=== PATIENT | female | born 1935 | race Caucasian/White ===

== ENCOUNTER 2017-07-18 10:44 | Inpatient (IN) | payer MEDICARE, MEDICAID ==
[~2017-07-18] VITALS: Ht 162.6 cm; Wt 108.9 kg
[~2017-07-18 10:44] MED LIST: ANTIVERT25 MG PO; BACTRIM 400-801 TAB PO; BAYER CHEWABLE81 MG PO; CELEXA20 MG PO; CENTRUM COMPLE1 EACH PO; DIPHENHIST12.5 MG/5 PO; DYAZIDE 37.5/251 CAP PO; GABAPENTIN100 MG PO; ICAPS AREDS1 TAB.SA PO; K-TAB10 MEQ PO; LASIX20 MG PO; MELATONIN 3 MG1 TAB PO; MIRALAX17 GM PO; MOBIC7.5 MG PO; NYSTATIN ORAL SU5 ML PO; OCUVITE PRESERV1 TAB PO; PLAVIX75 MG PO; POTASSIUM PO; POTASSIUM99 M1 PO; PREDNISONE; PRILOSEC20 MG PO; TYLENOL ARTHRITIS PO
[2017-07-18 11:22] LABS: APPEARANCE TURBID (CLEAR); BILIRUBIN NEGATIVE (NEGATIVE); COLOR YELLOW (YELLOW); GLUCOSE NEGATIVE (NEGATIVE); KETONE NEGATIVE (NEGATIVE); NITRITE NEGATIVE (NEGATIVE); PH 7.5 (5.0-6.0); PROTEIN NEGATIVE (NEGATIVE); SPECIFIC GRAVITY 1.005 (1.005-1.020); UROBILINOGEN NORMAL (NORMAL)
[2017-07-18 11:30] LABS: AMORPHOUS SEDIMENT >1+ /lpf (NONE SEEN); BACTERIA MANY /hpf (NONE SEEN); CALCIUM OXALATE CRYSTALS 0-5 /hpf (NONE SEEN); EPITHELIAL CELLS 0-5 /hpf (0-5); GRANULAR CAST OCC /lpf (NONE SEEN); HYALINE CAST OCC /lpf (NONE SEEN)
[2017-07-18 11:40] LABS: BASOPHILS 0.3 % (0-2); EOSINOPHILS 2.4 % (0-7); HEMATOCRIT 33.7 % (36.0-48.0); HEMOGLOBIN 11.2 g/dL (12-16); IMMATURE GRANULOCYTES 1.1 % (0-5); LYMPHOCYTES 18.1 % (15-50); MCH 30.5 pg (26.0-34.0); MCHC 33.2 g/dL (31.0-37.0); MCV 91.8 fL (80.0-100.0); MEAN PLATELET VOLUME 9.1 fL (7.4-10.4); MONOCYTES 21.2 % (2-11); NEUTROPHILS 56.9 % (40-80); RBC 3.67 10x6/uL (4.00-5.40); RDW 13.3 % (11.5-14.5); WBC 6.1 10x3/uL (4.8-10.8)
[2017-07-18 11:53] LABS: PLATELET COUNT 259 10x3/uL (130-400)
[2017-07-18 11:58] LABS: ALBUMIN 2.8 g/dL (3.4-5.0); ALKALINE PHOSPHATASE 83 U/L (46-116); ALT (SGPT) 22 U/L (10-68); BILIRUBIN - TOTAL 0.41 mg/dL (0.2-1.3); CALC OSMOLALITY 305 mosm/kg (275-300); CALCIUM 9.5 mg/dL (8.5-10.1); CARBON DIOXIDE 31.2 mmol/L (21.0-32.0); CHLORIDE - SERUM 98 mmol/L (98-107); CREATININE - SERUM 2.3 mg/dL (0.6-1.3); GLUCOSE 99 mg/dL (74-106); POTASSIUM - SERUM 5.3 mmol/L (3.5-5.1); PROTEIN - SERUM 7.8 g/dL (6.4-8.2); SODIUM 138 mmol/L (136-145); UREA NITROGEN 96 mg/dL (7-18); eGFR NON AFRICAN AMERICAN 21 mL/min (90-120)
[2017-07-18 12:07] LABS: CREATINE KINASE 34 UL (21-215); MAGNESIUM - SERUM 3.1 mg/dL (1.8-2.4); PRO BNP 633 pg/mL (0-450)
[2017-07-18 12:08] LABS: TROPONIN-I < 0.017 ng/mL (0.000-0.060)
--- NOTE | 2017-07-18 13:58 | NUR ---
RECEIVED PT TO ROOM 2135 VIA STRETCHER, FAMILY WITH PT. PT CONFUSED TO TIME, 22G IV NOTED TO RT BREAST, RESP EVEN AND UNLABORED ON 2L SAT 96%. PT AND FAMILY ORIENTED TO ROOM AND CALL LIGHT. NS INFUSING AT 100CC/HR. RATIONAL FOR SCD'S EXPLAINED TO PT AND DAUGHTER AT BEDSIDE, DAUGHTER REFUSED FOR SCD'S TO BE USED ON PT. WILL ASSESS PT AND START PLAN OF CARE, BED LOW AND WHEELS LOCKED, BEDSIDE RAILS X2, CALL LIGHT IN REACH.
[2017-07-18] MEDS ORDERED: HYDROCODON-ACE1 EAC7 (14:26)
[2017-07-18] MEDS ORDERED: NORTRIPTYLINE H50 MG PO (14:29)
[2017-07-18] MEDS ORDERED: ATIVAN0.5 MG PO ×2 (14:35→14:50)
[2017-07-18] MEDS ORDERED: TRAZODONE HCL50 MG PO (14:35)
[2017-07-18] MEDS ORDERED: DEPAKOTE SPRIN125 MG PO (14:37)
[2017-07-18] MEDS ORDERED: FUROSEMIDE40 MG PO (14:37)
[2017-07-18] MEDS ORDERED: K-DUR20 MEQ PO (14:38)
[2017-07-18] MEDS ORDERED: LIPITOR10 MG PO (14:38)
[2017-07-18] MEDS ORDERED: METOLAZONE2.5 MG PO (14:38)
[2017-07-18] MEDS ORDERED: LISINOPRIL2.5 MG PO (14:41)
[2017-07-18] MEDS ORDERED: MYSOLINE 50 MG50 MG PO (14:41)
[2017-07-18] MEDS ORDERED: NEURONTIN 300300 MG PO (14:42)
[2017-07-18] MEDS ORDERED: MAG-OX 400 MG400 MG PO (14:44)
[2017-07-18] MEDS ORDERED: SENNA LAXATIVE8.6 MG PO (14:47)
[2017-07-18] MEDS ORDERED: MYLANTA / MAALO30 ML PO (14:49)
[2017-07-18] MEDS ORDERED: MILK OF MAGNESI30 ML PO (14:49)
[2017-07-18] MEDS ORDERED: ACETAMINOPHEN500 M1 PO (14:52)
[2017-07-18] MEDS ORDERED: TYLENOL650 MG RC (14:52)
[2017-07-18 14:57] VITALS: BP 151/68; BMI 41.3
[2017-07-18 20:16] VITALS: BP 104/73
--- NOTE | 2017-07-18 21:10 | NUR ---
PT IN BED WITH HOB UP FOR COMFORT. EYES CLOSED. DAUGHTER AND GRANDDAUGHTER AT BEDSIDE. PT HAS HAS 02 @ 2L VIA OK. PRODUCTIVE COUGH. ALEXIS CATH. DEMENTIA. MEDS WHOLE IN APPLESAUCE. PT IS HAVING SOME TROUBLE SWALLONG. SPEECH THERAPY WAS CONSULTED EARLIER TODAY, BUT THEY HAVE NOT CAME. ELECTROLYTE PROTOCOL. REFUSING SCD'S. RIGHT BREAST NS 2 75ML/HR. DAUGHTER STATED TO ME THAT AT THE INTERMEDIATE SHE IS ON A PUREE DIET AND THAT THEY USE A LIFT TO GET HER IN AND OUT OF BED AND SHE ALSO STATED THAT PT CAN NOT WALK. BED IS IN LOWEST POSITION AND CALL LIGHT WITHIN REACH.
[2017-07-19 00:02] VITALS: BP 108/56
--- NOTE | 2017-07-19 02:43 | NUR ---
PT LYING IN BED WITH HOB UP FOR COMFORT. EYES CLOSED. CHEST RISING AND FALLING. BED IN LOWEST POSITION AND CALL LIGHT WITHIN REACH.
[2017-07-19 04:50] VITALS: BP 78/41
[2017-07-19 06:45] LABS: BASOPHILS 0.8 % (0-2); HEMOGLOBIN 9.5 g/dL (12-16); IMMATURE GRANULOCYTES 1.8 % (0-5); LYMPHOCYTES 16.5 % (15-50); MCH 30.2 pg (26.0-34.0); MCHC 32.8 g/dL (31.0-37.0); MCV 92.1 fL (80.0-100.0); MONOCYTES 19.6 % (2-11); NEUTROPHILS 56.3 % (40-80); PLATELET COUNT 212 10x3/uL (130-400); RBC 3.15 10x6/uL (4.00-5.40); RDW 13.3 % (11.5-14.5)
[2017-07-19 06:48] LABS: WBC 3.8 10x3/uL (4.8-10.8)
[2017-07-19 06:54] LABS: ANION GAP 12.5 mmol/L (8-16); CALCIUM 8.8 mg/dL (8.5-10.1); CREATININE - SERUM 2.1 mg/dL (0.6-1.3)
[2017-07-19 06:55] LABS: POTASSIUM - SERUM 4.5 mmol/L (3.5-5.1)
--- NOTE | 2017-07-19 07:15 | NUR ---
RECEIVED REPORT. ASSUMED CARE OF PATIENT. PATIENT WITH EYES OPEN, CONFUSED. ALERT TO SELF ONLY. IV FLUIDS INFUSING ORDERED. IV TO RIGHT BREAST PATENT. NO DISTRESS. F/C PATENT.
[2017-07-19 08:47] VITALS: BP 121/50
--- NOTE | 2017-07-19 10:00 | NUR ---
PATIENT TOLERATED MEDS CRUSED IN APPLESAUCE AND THICKENED LEMON FLAVOR WATER WELL. DAUGHTER AT BEDSIDE. NO CHOKING, COUGHING AFTER SWALLOWING. CONTINUE ON IV FLUIDS. NO DISTRESS.
[2017-07-19 12:03] VITALS: BP 107/77
--- NOTE | 2017-07-19 15:00 | NUR ---
TURNED AND REPOSITIONED. CALL LIGHT WITHIN REACH. DAUGHTER AT BEDSIDE.
[2017-07-19 16:23] VITALS: BP 104/51
--- NOTE | 2017-07-19 17:52 | NUR ---
RESTING IN BED WITH EYES OPEN. REMAINS PLEASANTLY CONFUSED. CALL LIGHT WITHIN REACH. NO DISTRESS.
[2017-07-19 20:43] VITALS: BP 107/29
--- NOTE | 2017-07-19 21:45 | NUR ---
SOCK KNITTING MACHINE OPERATOR REPORT PT BP IS 107/29, AND RECHECK PT BP IS 109/47, WILL MONITOR PT CLOSELY.
[2017-07-20 00:06] VITALS: BP 93/36
--- NOTE | 2017-07-20 01:08 | NUR ---
REST QUIETLY IN BED, EYE CLOSE.
--- NOTE | 2017-07-20 01:10 | NUR ---
CHECK PT BP IS 122/61.
--- NOTE | 2017-07-20 02:53 | NUR ---
REST QUIETLY IN BED, EYE CLOSE, BED LOW.
[2017-07-20 05:00] VITALS: BP 105/45
[2017-07-20 06:06] LABS: BASOPHILS 0.8 % (0-2); HEMATOCRIT 28.1 % (36.0-48.0); HEMOGLOBIN 9.3 g/dL (12-16); IMMATURE GRANULOCYTES 1.4 % (0-5); LYMPHOCYTES 18.8 % (15-50); MCH 30.4 pg (26.0-34.0); MCHC 33.1 g/dL (31.0-37.0); MCV 91.8 fL (80.0-100.0); MONOCYTES 19.9 % (2-11); NEUTROPHILS 53.1 % (40-80); PLATELET COUNT 222 10x3/uL (130-400); RBC 3.06 10x6/uL (4.00-5.40); WBC 3.7 10x3/uL (4.8-10.8)
[2017-07-20 06:29] LABS: ANION GAP 11.6 mmol/L (8-16); CALCIUM 8.7 mg/dL (8.5-10.1); CARBON DIOXIDE 28.7 mmol/L (21.0-32.0); CREATININE - SERUM 1.7 mg/dL (0.6-1.3); POTASSIUM - SERUM 4.3 mmol/L (3.5-5.1)
--- NOTE | 2017-07-20 07:15 | NUR ---
REPORT RECEIVED. PT RESTING QUIETLY, RR EVEN AND UNLABORED. PT IS LETHARGIC THIS MORNING. WILL CTM.
[2017-07-20 08:00] VITALS: BP 140/49
--- NOTE | 2017-07-20 08:50 | NUR ---
SPOKE TO FAMILY REGARDING PT CONDTION. FAMILY REPORTS THAT PT IS SUPPOSED TO BE ON HONEY THICKEND LIQUIDS. WILL PLACE ORDER AND CTM.
--- NOTE | 2017-07-20 11:00 | NUR ---
PTS CATHETER LEAKING. ADVANCED CATHETER FURTHER AND SECURED TO LEG. WILL CTM FOR LEAKS IN CATHETER. STILL DRAINING SIGNIFICANT AMT OF URINE.
[2017-07-20 12:00] VITALS: BP 130/57
--- NOTE | 2017-07-20 12:30 | NUR ---
PT HAS BEEN COUGHING TODAY. FAMILY AND PT REQUESTED SOMETHING FOR COUGH. WILL TALK TO JANITOR REGARDING PT REQUEST.
--- NOTE | 2017-07-20 13:00 | NUR ---
SPOKE TO VALENTÍN WARREN ABOUT PTS COUGH. GAVE VERBAL ORDER FOR TESSALON TIDP. WILL GIVE AND CTM.
[2017-07-20 14:14] VITALS: Ht 162.6 cm; Wt 108.9 kg
[2017-07-20 17:21] VITALS: BP 143/71
--- NOTE | 2017-07-20 17:45 | NUR ---
ASSISTED SPAGHETTI MACHINE OPERATOR TO CLEAN UP PT, ESPINOZA CATHETER STILL SLIGHTLY LEAKING. ADVANCED CATHETER AGAIN. WILL CTM.
--- NOTE | 2017-07-20 18:44 | NUR ---
PT IS CRYING OUT FREQUENTLY, VERY CONFUSED THIS EVENING. RR EVEN AND UNLABORED. WILL GIVE REPORT ON PT CONDITION FOR THE DAY.
[2017-07-20 21:40] VITALS: BP 114/58
--- NOTE | 2017-07-21 01:54 | NUR ---
PT IN BED WITH HOB UP FOR COMFORT. EYES CLOSED. CHEST RISING AND FALLING. VERY CONFUSED. HONEY THICK LIQUIDS. MEDS CRUSHED IN APPLESAUCE. ESPINOZA. 02 @ 2L VIA NC. RIGHT BREAST 22G NS @ 50 ML/HR. BED IN LOWEST POSITION AND CALL LIGHT WITHIN REACH.
[2017-07-21 02:05] VITALS: BP 117/61
[2017-07-21 05:48] LABS: HEMATOCRIT 29.5 % (36.0-48.0); HEMOGLOBIN 9.8 g/dL (12-16); MCH 30.4 pg (26.0-34.0); MCHC 33.2 g/dL (31.0-37.0); MCV 91.6 fL (80.0-100.0); MEAN PLATELET VOLUME 8.7 fL (7.4-10.4); PLATELET COUNT 193 10x3/uL (130-400); RBC 3.22 10x6/uL (4.00-5.40); RDW 13.1 % (11.5-14.5); WBC 2.8 10x3/uL (4.8-10.8)
[2017-07-21 06:05] LABS: ANION GAP 10.2 mmol/L (8-16); CALCIUM 8.9 mg/dL (8.5-10.1); CARBON DIOXIDE 29.8 mmol/L (21.0-32.0); CREATININE - SERUM 1.1 mg/dL (0.6-1.3)
[2017-07-21 06:55] LABS: EOSINOPHILS 8 % (0-7); HYPOCHROMASIA OCC; LYMPHOCYTES 41 % (15-50); MONOCYTES 11 % (2-11); NEUTROPHILS 36 % (40-80); PLATELET ESTIMATE NORMAL
--- NOTE | 2017-07-21 07:36 | NUR ---
AM ROUNDS - PT IS IN BED AND APPEARS TO BE SLEEPING AT THIS TIME WITH EQUAL AND NON LABORED BREATHING. PT IS ON 2L O2 VIA NC. IV TO RIGHT BREAST, 22G, NS AT 50CC/HR. EP, K+ 4.0. ESPINOZA. BED AT LOWEST POSITION. CALL BOLIVAR IN USE/REACH. WILL CONTINUE TO MONITOR
[2017-07-21 08:00] VITALS: BP 163/74
[2017-07-21 12:00] VITALS: BP 142/59
--- NOTE | 2017-07-21 16:48 | NUR ---
PT IN BED ADN APPEARS TO BE SLEEPING WITH EQUAL AND NON LABORED BREATHING. BED AT LOWEST POSITION. CALL BOLIVAR IN USE/REACH. SIDE RAILS UP X2. WILL CONTINUE TO MONITOR
[2017-07-21 17:10] VITALS: BP 188/73
--- NOTE | 2017-07-22 00:03 | NUR ---
TOURIST INFORMATION OFFICER AT BED SIDE TO OBTAIN VITALS, WILL CONT TO MONITOR.
[2017-07-22 04:39] VITALS: BP 126/58
--- NOTE | 2017-07-22 04:40 | NUR ---
URINE COLLECTED AND SENT TO THE LAB ORDERED.
[2017-07-22 06:01] LABS: BASOPHILS 0.5 % (0-2); HEMATOCRIT 29.6 % (36.0-48.0); HEMOGLOBIN 9.8 g/dL (12-16); IMMATURE GRANULOCYTES 0.7 % (0-5); LYMPHOCYTES 18.7 % (15-50); MCH 30.2 pg (26.0-34.0); MCHC 33.1 g/dL (31.0-37.0); MCV 91.1 fL (80.0-100.0); MONOCYTES 17.6 % (2-11); NEUTROPHILS 59.5 % (40-80); PLATELET COUNT 202 10x3/uL (130-400); RBC 3.25 10x6/uL (4.00-5.40); RDW 12.9 % (11.5-14.5)
[2017-07-22 06:04] LABS: WBC 4.4 10x3/uL (4.8-10.8)
--- NOTE | 2017-07-22 06:07 | NUR ---
PATIENT HAS BEEN CRYING AND YELL DURING THE NIGHT, I SPOKE WITH THE PATIENTS DAUGHTER AND SHE IS ON HER WAY TO SIT WITH HER NOW. I CALLED VALENTÍN TEMPLE AND GOT AN ORDER FOR A ONE TIME DOSE OF GEODON 20 MG PO. CALL LIGHT IS IN REACH.
[2017-07-22 06:26] LABS: ANION GAP 11.1 mmol/L (8-16); CARBON DIOXIDE 30.3 mmol/L (21.0-32.0); CREATININE - SERUM 1.1 mg/dL (0.6-1.3); POTASSIUM - SERUM 4.4 mmol/L (3.5-5.1)
[2017-07-22 07:00] LABS: APPEARANCE CLEAR (CLEAR); BILIRUBIN NEGATIVE (NEGATIVE); COLOR YELLOW (YELLOW); GLUCOSE NEGATIVE (NEGATIVE); KETONE NEGATIVE (NEGATIVE); NITRITE NEGATIVE (NEGATIVE); PROTEIN TRACE mg/dL (NEGATIVE); UROBILINOGEN NORMAL (NORMAL)
[2017-07-22 07:01] LABS: BACTERIA FEW /hpf (NONE SEEN); EPITHELIAL CELLS 0-5 /hpf (0-5); MUCUS <1+ /lpf (NONE SEEN); RED CELLS - URINE OCC /hpf (0-5); WHITE CELLS - URINE 0-5 /hpf (0-5)
[2017-07-22 08:24] VITALS: BP 132/48
--- NOTE | 2017-07-22 08:28 | NUR ---
AM ROUNDS - PT IS IN BED AND AWAKE AT THIS TIME. DAUGHTER AND NURSING STUDENTS AT BEDSIDE. PT IS ON 2L O2 VIA NC. IV TO RIGHT WRIST, NS AT 50CC/HR. SCD ON. ALEXIS. PT IS CONFUSED. BED AT LOWEST POSITION. CALL BOLIVAR IN USE/REACH. SIDE RAILS UP X2. SIDE RAILS UP X2. NO NEEDS AT THIS TIME. WILL CONTINUE TO MONITOR
[2017-07-22 11:55] VITALS: BP 165/69
[2017-07-22] MEDS ORDERED: NORVASC5 MG PO (13:34)
[2017-07-22] MEDS ORDERED: MACRODANTIN50 MG PO (13:42)
[2017-07-22 15:27] VITALS: BP 158/70
--- NOTE | 2017-07-22 16:16 | NUR ---
Patient Name: ELIEL COMER Encounter No: [id number] : 1935 Primary Insurance: [employer] ADV Anticipated DC Date: 07-23-2017 Planned Disposition: Half-Way Facility External Planned Provider: [facility], [facility] MEDICAID BED DCP follow-up note: CM RECEIVED CALL FROM FAVIAN OF [facility], , WHO REPORTS THEY WILL ACCEPT PT BACK FOR NURSING HOME CARE TOMORROW MORNING AND WILL WORK ON GETTING INSURANCE AUTHORIZATION FOR SKILLED SERVICES WITH PT IN THE FACILITY. FAVIAN REPORTS THEY DO NEED THE THERAPY EVALUATIONS COMPLETED [facility]. FOR DISCHARGE IN THE MORNING, 07-23-17, FAX DISCHARGE INSTRUCTIONS TO [facility] AT [phone]; NURSE REPORT TO BE CALLED TO [facility] AT [phone]. TRANSPORTATION TO BE ARRANGED BASED ON THERAPY EVALUATION / ABILITY TO SIT SAFELY FOR TRANSPORTATION. Tima Garsia, CASE MANAGEMENT
--- NOTE | 2017-07-22 17:29 | NUR ---
PT IS IN BED ADN APPEARS TO BE SLEEPING WITH EQUAL AND NON LABORED BREATHING AT THIS TIME. WILL CONTINUE TO MONITOR
--- NOTE | 2017-07-22 18:29 | NUR ---
ESPINOZA D/C. WILL CONTINEUT O MONITOR
[2017-07-22 20:00] VITALS: BP 146/59
[2017-07-23 04:00] VITALS: BP 175/84
--- NOTE | 2017-07-23 05:32 | NUR ---
COMPOSITE ENGINEER AT BEDSIDE TO OBTAIN VITALS, WILL CONTINUE WITH PLAN OF CARE. CALL LIGHT IN REACH.
[2017-07-23 06:17] LABS: BASOPHILS 0.5 % (0-2); HEMATOCRIT 29.3 % (36.0-48.0); HEMOGLOBIN 9.9 g/dL (12-16); IMMATURE GRANULOCYTES 0.5 % (0-5); LYMPHOCYTES 13.4 % (15-50); MCH 30.7 pg (26.0-34.0); MCHC 33.8 g/dL (31.0-37.0); MEAN PLATELET VOLUME 8.9 fL (7.4-10.4); MONOCYTES 13.4 % (2-11); NEUTROPHILS 70.2 % (40-80); PLATELET COUNT 181 10x3/uL (130-400); RBC 3.22 10x6/uL (4.00-5.40); RDW 12.8 % (11.5-14.5); WBC 5.5 10x3/uL (4.8-10.8)
[2017-07-23 06:19] LABS: ANION GAP 9.4 mmol/L (8-16); CALCIUM 9.1 mg/dL (8.5-10.1); CARBON DIOXIDE 29.7 mmol/L (21.0-32.0); CREATININE - SERUM 0.9 mg/dL (0.6-1.3); POTASSIUM - SERUM 4.1 mmol/L (3.5-5.1)
[2017-07-23 08:54] VITALS: BP 176/62
--- NOTE | 2017-07-23 11:46 | NUR ---
Patient Name: ELIEL COMER Encounter No: [id number] : 1935 Primary Insurance: [employer] MED[employer]ARE ADV Anticipated DC Date: 07-23-2017 Planned Disposition: Penitentiary Facility External Planned Provider: [facility], [facility] [employer] [facility]IC[facility] MEDICAID BED DCP follow-up note: CM CALLED [facility], , SPOKE TO FAVIAN, PT TO DISCHARGE BACK TODAY. CM FAXED THERAPY EVALUATIONS AND DISCHARGE INFORMATION TO FAVIAN AT [phone]. CM CALLED ROBBY, PT'S DAUGHTER, , NORTIFIED OF DISCHARGE AND FULLOW UP URINE MICRO RESULTS TO BE CALLED TO [facility] BY CM TOMORROW. ROBBY IN AGREEMENT WITH DISCHARGE VIA AMBULANCE, ASKED TO BE NOTIFIED BY PHONE WHEN THE AMBULANCE LEAVES WITH PT TO RETURN PT TO THE [facility]. NURSE REPORT TO BE CALLED TO NURSE LAURA AT [facility], . PT TO TRANSPORT VIA AMBULANCE. NOTIFY PT'S DAUGHTER, ROBBY, , WHEN AMBULANCE LEAVES WITH PT. Tima Garsia, CASE MANAGMENT
--- NOTE | 2017-07-23 12:13 | NUR ---
PT IV REMOVED CATH INTACT. [facility] CALLED TO TRANSPORT PT TO [facility].
[2017-07-23 12:55] VITALS: BP 169/54
--- NOTE | 2017-07-23 13:40 | NUR ---
PT DISCHARGED TO [facility] VIA AMBULANCE.
== END 2017-07-23 13:40 | DRG 683 ==
LOC: D.ER 10:44 → D.M2 12:24 → D.SDCHOLD 07-21 14:49 → D.M2 07-21 14:50
PROVIDERS: Emergency Medicine; Family Medicine; Internal Medicine; ADMIT Emergency Medicine
PROC: 0T9B70Z Drainage of Bladder with Drainage Device, Via Natural or Artificial Opening (ICD-10-PCS; principal; 2017-07-18)
DX: N17.9 Acute kidney failure, unspecified (principal); N39.0 Urinary tract infection, site not specified; I13.0 Hypertensive heart and chronic kidney disease with heart failure and stage 1 through stage 4 chronic kidney disease, or unspecified chronic kidney disease; E87.1 Hypo-osmolality and hyponatremia; B96.20 Unspecified Escherichia coli [E. coli] as the cause of diseases classified elsewhere; N18.9 Chronic kidney disease, unspecified; I50.9 Heart failure, unspecified; E83.41 Hypermagnesemia; G62.9 Polyneuropathy, unspecified; F03.90 Unspecified dementia, unspecified severity, without behavioral disturbance, psychotic disturbance, mood disturbance, and anxiety; D64.9 Anemia, unspecified; E86.0 Dehydration; E87.5 Hyperkalemia; Z86.73 Personal history of transient ischemic attack (TIA), and cerebral infarction without residual deficits; Z16.24 Resistance to multiple antibiotics